=== PATIENT | female | born 1965 | race African-American/Black ===

== ENCOUNTER 2016-12-24 09:52 | Emergency (ER) | payer OTHER ==
[~2016-12-24] VITALS: Ht 162.6 cm; Wt 64.9 kg
[~2016-12-24 09:52] MED LIST: ANTIVERT25 MG PO; NORCO 10/325 MG1 TAB PO; PROVENTIL2.5 MG/3 M INH; SOMA350 MG PO
[2016-12-24 09:57] VITALS: BP 156/92
[2016-12-24] MEDS ORDERED: ACETAMINOPHEN 325 MG TAB ONE (10:06)
--- NOTE | 2016-12-24 10:23 | NUR ---
Pt taken to bed 4.
--- NOTE | 2016-12-24 10:28 | NUR ---
Dr. Christensen evaluating patient at bedside.
--- NOTE | 2016-12-24 10:28 | NUR ---
I let the back and Dr. Christensen did not want the to be back until he was done with his exam. explained that the is deaf and he can help translate and Dr. Christensen did not want him at the bedside. went back into the lobby.
--- NOTE | 2016-12-24 10:30 | NUR ---
51/F bib for evaluation of body aches, cough and congestion since 1 week. Pt was seen by PMD and was referred to the ED for further evaluation and to r/o PNA. also states the patient has had a decrease in appetite. Pt noted with a cough and congestion. Pt also c/o fever and chills. Denies N/V/D. Pt is AOX4, hearing impaired. VSS.
[2016-12-24] MEDS ORDERED: ACETAMINOPHEN EXTRA STRENGTH 500 MG TAB PO ONE (10:35)
[2016-12-24] MEDS ORDERED: NACL 0.9% 1,000 ML IV ONE (10:35)
[2016-12-24] MEDS ORDERED: cefTRIAXone 2,000 MG in DEXTROSE 5% 100 ML IV ONE (10:35)
[2016-12-24] MEDS ORDERED: cefTRIAXone 2,000 MG VIAL ONE (10:50)
--- NOTE | 2016-12-24 11:24 | NUR ---
Patient appears to be resting comfortably in bed. Vital Signs within normal limits. Respirations even and unlabored.
--- NOTE | 2016-12-24 12:37 | NUR ---
IV removed, catheter intact and site benign. Applied folded 4x4 gauze and tape to stop bleeding.
[2016-12-24 12:47] VITALS: BP 117/58
--- NOTE | 2016-12-24 12:48 | NUR ---
Chart checked and completed. The patient's care was reviewed and supervised by Froilan Fitzgerald RN.
--- NOTE | 2016-12-24 12:48 | NUR ---
Patient discharged with v/s stable. Written and verbal after care instructions given and explained. Patient alert, oriented and verbalized understanding of instructions. Ambulatory with steady gait. All questions addressed prior to discharge. ID band removed. Patient advised to follow up with PMD. Rx of Z PACK, TYLENOL given. Patient educated on indication of medication including possible reaction and side effects. Opportunity to ask questions provided and answered.
== END 2016-12-24 12:37 | disposition home or self-care (01) ==
LOC: MED 09:52
DX: J20.9 Acute bronchitis, unspecified (principal); R03.0 Elevated blood-pressure reading, without diagnosis of hypertension; J45.909 Unspecified asthma, uncomplicated; Z88.6 Allergy status to analgesic agent
CPT/HCPCS: 36415; 71010; 80053; 83880; 85025; 85610; 85730; 87040; 93005; 96365; 99285; J0696; J7030; Q0092

== ENCOUNTER 2017-05-01 15:13 | Emergency (ER) | payer OTHER ==
--- NOTE | 2017-05-01 17:17 | NUR ---
PT CALLED AT THE LOBBY BUT LEFT WITHOUT BEING SEEN
--- NOTE | 2017-05-01 17:17 | NUR ---
PATIENT LEFT WITHOUT BEING SEEN BY DR. ISAAC. NO FURTHER CARE PROVIDED FOR PATIENT.
== END 2017-05-01 17:17 | disposition left against medical advice (07) ==
LOC: MED 15:13
DX: M25.569 Pain in unspecified knee (principal); Z53.21 Procedure and treatment not carried out due to patient leaving prior to being seen by health care provider

== ENCOUNTER 2018-08-24 10:47 | Emergency (ER) | payer OTHER ==
[~2018-08-24] VITALS: Ht 160 cm; Wt 57.6 kg
[~2018-08-24 10:47] MED LIST changes: +ACET-787 PO; -ANTIVERT25 MG PO; +CARI350T PO; -NORCO 10/325 MG1 TAB PO; +PRON INH; -PROVENTIL2.5 MG/3 M INH; -SOMA350 MG PO
--- NOTE | 2018-08-24 10:50 | NUR ---
PT TAKEN BY WHEELCHAIR TO ER BED 09
--- NOTE | 2018-08-24 10:52 | NUR ---
53/F BIB c/o left knee pain swelling x 6 days. denies recent injury. hx of acl tear repaired and left knee fx . hx: hard of hearing(left cochlear implant). DENIES N/V/D; SKIN IS PINK/WARM/DRY; AAOX4 WITH EVEN AND STEADY GAIT; LUNGS CLEAR BL; HR EVEN AND REGULAR; PT DENIES ANY FEVER, CP, SOB, OR COUGH AT THIS TIME; PATIENT STATES PAIN OF 10/10 AT THIS TIME. PATIENT POSITIONED FOR COMFORT; HOB ELEVATED; BEDRAILS UP X2; BED DOWN. ER MD MADE AWARE OF PT STATUS.
[2018-08-24 10:58] VITALS: BP 139/61
--- NOTE | 2018-08-24 11:15 | NUR ---
Patient being evaluated by DR BRUNSON at bedside.
[2018-08-24] MEDS ORDERED: MORPHINE SULFATE 4 MG/ML SYR IM ONE (11:20)
[2018-08-24 11:47] VITALS: BP 121/62
--- NOTE | 2018-08-24 11:47 | NUR ---
Patient discharged with v/s stable. Written and verbal after care instructions given and explained. Patient alert, oriented and verbalized understanding of instructions. Wheel Chair Assisted with to car. All questions addressed prior to discharge. ID band removed. Patient advised to follow up with PMD. Rx of NORCO given. Patient educated on indication of medication including possible reaction and side effects. Opportunity to ask questions provided and answered.
== END 2018-08-24 11:47 | disposition home or self-care (01) ==
LOC: MED 10:47
DX: M25.562 Pain in left knee (principal); J45.909 Unspecified asthma, uncomplicated; F17.200 Nicotine dependence, unspecified, uncomplicated; Z88.6 Allergy status to analgesic agent; Z79.899 Other long term (current) drug therapy
CPT/HCPCS: 96372; 99283; J2270